=== PATIENT | female | born 1960 | race Caucasian/White ===

== ENCOUNTER 2018-03-19 18:58 | Inpatient (IN) ==
[2018-03-20] MEDS ORDERED: Aluminum/Magnesium/Simethacone Susp 30 ML UDC PO PRN (01:09)
[2018-03-20] MEDS ORDERED: Acetaminophen 325 MG Tablet PO PRN (01:09)
[2018-03-20] MEDS ORDERED: LORazepam 1 MG Tablet PO PRN (01:17)
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
[2018-03-20] MEDS: buPROPion 100 MG ER 12 HR Tablet PO SCH (15:58)
[2018-03-20] MEDS: FLUoxetine 20 MG Capsule PO SCH (15:58)
[2018-03-20] MEDS ORDERED: Influenza (Quadrivalent) Vaccine 0.5 ML Syringe IM ONE (20:45)
[2018-03-20] MEDS ORDERED: [UNRECOGNIZED DRUG - REMARK] T-DERMAL ONE (21:00)
[2018-03-21 08:18] LABS: Anion Gap 6 meq/L (5-15); Blood Urea Nitrogen 10 mg/dL (7-18); Calcium 8.7 mg/dL (8.5-10.1); Carbon Dioxide 30.6 meq/L (21.0-32.0); Chloride 104 meq/L (98-107); Glomerular Filtration Rate Greater Than 89 mL/min (>89); Glucose,Random 98 mg/dL (74-106); Potassium 3.8 meq/L (3.5-5.1); Sodium 141 meq/L (136-145)
[2018-03-21 08:19] LABS: Cholesterol 183 mg/dL (120-200); Triglycerides 47 mg/dL (42-150)
[2018-03-21 08:20] LABS: Chol/HDL Ratio 1.64 Ratio; HDL Cholesterol 111.1 mg/dL (40.0-60.0); LDL Cholesterol,Calculated 63 mg/dL (0-99)
[2018-03-21] MEDS: FLUoxetine 20 MG Capsule PO SCH (08:27)
[2018-03-21] MEDS: buPROPion 100 MG ER 12 HR Tablet PO SCH (08:27)
[2018-03-21 11:25] LABS: Hemoglobin A1c 5.6 % (4.3-6.0)
--- NOTE | 2018-03-21 12:01 | P.PNPSY ---
Subjective Remarks: Patient seen today in her room with nurse Louisa, chart reviewed, patient compliant medication. Patient states she slept better last night. He denies suicidality or voices today. Though she is still depressed somewhat labile and tearful. She is making efforts to find a sober living facility. For now continue treatment Review of Systems All other systems reviewed negative except as stated in HPI Mental Status Examination Appearance: Appropriate Consciousness: Alert Orientation: x4 Motor Activity: Normal gait Speech: Unremarkable Language: Adequate Fund of Knowledge: Adequate Attention and Concentration: Adequate Memory: Unremarkable Mood: Sad Affect: Other (Slight decreased range and intensity) Thought Process & Associations: Intact Thought Content: Appropriate Hallucination Type: None Suicidal Ideation: Yes (Denies today) Suicidal Plan: No Suicidal Intention: No Homicidal Ideation: No Homicidal Plan: No Homicidal Intention: No Judgment: Impulsive Assessment and Plan - Assessment (1) Adjustment disorder with depressed mood Code(s): F43.21 - Adjustment disorder with depressed mood Status: Acute (2) Alcohol dependence with acute alcoholic intoxication without complication Code(s): F10.220 - Alcohol dependence with intoxication, uncomplicated Status : Acute - Plan Plan: Patient remains depressed does denies suicidality today denies voices or visions. He is continuing to make an effort to find a sober living facility. Is compliant with medication Justification for Continued Inpatient Stay: At this time patient with decompensated placed in a lower level of care Discharge Planning: To be determined patient continue to work on finding a sober living facility Request Healthcare Surrogate/Guardian Advocate?: No
[2018-03-22] MEDS: FLUoxetine 20 MG Capsule PO SCH (08:30)
[2018-03-22] MEDS: buPROPion 100 MG ER 12 HR Tablet PO SCH (08:30)
--- NOTE | 2018-03-22 11:58 | P.PNPSY ---
Subjective Remarks: Patient is seen and salmeron with nurse Delvis, chart reviewed, patient compliant medication Mental Status Examination Appearance: Appropriate Consciousness: Alert Orientation: x4 Motor Activity: Normal gait Speech: Unremarkable Language: Adequate Fund of Knowledge: Adequate Attention and Concentration: Adequate Memory: Unremarkable Mood: Sad Affect: Other (Slight decreased range and intensity) Thought Process & Associations: Intact Thought Content: Appropriate Hallucination Type: None Suicidal Ideation: Yes (Denies today) Suicidal Plan: No Suicidal Intention: No Homicidal Ideation: No Homicidal Plan: No Homicidal Intention: No Judgment: Impulsive Assessment and Plan - Assessment (1) Adjustment disorder with depressed mood Code(s): F43.21 - Adjustment disorder with depressed mood Status: Acute (2) Alcohol dependence with acute alcoholic intoxication without complication Code(s): F10.220 - Alcohol dependence with intoxication, uncomplicated Status : Acute - Plan Plan: Patient remains depressed does denies suicidality today denies voices or visions. He is continuing to make an effort to find a sober living facility. Is compliant with medication Justification for Continued Inpatient Stay: At this time patient would decompensated placed in a lower level of care Discharge Planning: Continue to await word from [facility] Request Healthcare Surrogate/Guardian Advocate?: No
--- NOTE | 2018-03-22 12:56 | P.TTN ---
- Patient Problems Problems: 1. Discharge planning 2. Medication compliance 3. Knowledge deficit 4. Lack of coping skills - Progress Toward Goals Provider Present: Dr. Judd Green (Patient has a history of alcoholism, patient being treated for alcohol and depression, patient remains for further stabilization.) Psychiatric Counselors Present: Jose Baron Jr., [facility] (Patient given complete list of sober living facilities. Counselor will follow up.) Group Spec/RT/OT/GILMORE Present: DEIRDRE Arias (Patient attends select groups.) - Documentation Teaching Recipient: Patient
[2018-03-22 21:32] VITALS: RESP 16
[2018-03-23 05:48] VITALS: BP 111/77; PULSE 73; TEMP 98.1; O2SAT 97
[2018-03-23] MEDS: FLUoxetine 20 MG Capsule PO SCH (08:27)
[2018-03-23] MEDS: buPROPion 100 MG ER 12 HR Tablet PO SCH (08:27)
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
== END 2018-03-23 12:10 | disposition home or self-care (01) | DRG 881 ==
LOC: H260 03-20 00:07
PROVIDERS: ADMIT Psychiatry & Neurology Psychiatry; ATTEND Psychiatry & Neurology Psychiatry
CPT/HCPCS: 80048; 80061; 83036; 90658; 90686; Q0163; Q2038